=== PATIENT | female | born 1950 | race Caucasian/White ===

== ENCOUNTER 2020-06-16 12:46 | Emergency (ER) | payer MEDICARE, BC ==
--- NOTE | 2020-06-16 13:02 | EDM.PDOC ---
ED HPI GENERAL MEDICAL PROBLEM - General Chief Complaint: Lower Extremity Injury/Pain Stated Complaint: FALL (L) KNEE PAIN Time Seen by Provider: 06/16/20 12:53 Source of Information: Reports: Patient, RN Notes Reviewed - History of Present Illness INITIAL COMMENTS - FREE TEXT/NARRATIVE: 70 yr old female comes in with L knee pain. Tumbled down about 4 steps in the dark early this am with resultant pain and injury L knee. Pain is mainly medial L knee, worse with motion, difficulty to walk. No other major pain or injury. Hx of L total hip times 3. Treatments WIRELESS WATCHER: Reports: Other (see below) Other Treatments WIRELESS WATCHER: aleve this am Left Knee Pain Score (Numeric/FACES): 4 - Related Data Allergies Allergy/AdvReac Type Severity Reaction Status Date / Time cipro Allergy Severe Other Uncoded 06/16/20 13:00 Home Meds: Home Meds Naproxen Sodium [Aleve] 220 mg PO DAILY 06/16/20 [History] Triamterene/Hydrochlorothiazid [Triamterene-HCTZ 37.5-25 MG] 1 tab PO DAILY 06/16/20 [History] cycloSPORINE [Restasis Multidose] 1 drop TOP BID 06/16/20 [History] Review of Systems - Review of Systems Review Of Systems: See Below Mouth/Throat: Reports: No Symptoms Respiratory: Reports: No Symptoms Cardiovascular: Reports: Chest Pain GI/Abdominal: Reports: Abdominal Pain Musculoskeletal: Reports: Joint Pain (L knee) Skin: Reports: Other (mild abrasion R knee) Neurological: Denies: Dizziness, Numbness, Tingling, Weakness ED EXAM, GENERAL - Physical Exam Exam: See Below General Appearance: Alert, No Apparent Distress Eye Exam: Bilateral Eye: PERRL Head: Atraumatic. No: Facial Swelling Neck: Supple Respiratory/Chest: No Respiratory Distress GI/Abdominal: Non-Tender Extremities: No: Joint Swelling Neurological: Alert, Oriented, No Motor/Sensory Deficits Skin Exam: Warm, Dry, Normal Color Course - Vital Signs Last Recorded V/S: Last Vital Signs Temp 97.7 F 06/16/20 12:55 Pulse 66 06/16/20 12:55 Resp 20 06/16/20 12:55 BP 166/81 H 06/16/20 12:55 Pulse Ox 100 06/16/20 12:55 - Re-Assessments/Exams Free Text/Narrative Re-Assessment/Exam: 06/16/20 13:34 X rays no visible fx Departure - Departure Time of Disposition: 13:35 Disposition: Home, Self-Care 01 Preliminary Cause of *Q: Sepsis & Multi System Organ Failure Clinical Impression: Fall Qualifiers: Encounter type: initial encounter Qualified Code(s): W19.XXXA - Unspecified fall, initial encounter Right knee sprain Qualifiers: Encounter type: initial encounter Involved ligament of knee: medial collateral ligament Qualified Code(s): S83.411A - Sprain of medial collateral ligament of right knee, initial encounter - Discharge Information Referrals: Padmaja Cerrato PA-C [Primary Care Provider] - Forms: ED Department Discharge Additional Instructions: Continue to use arlette wrap, continue with cane, rest, ice packs, elevation, aleve as needed. See Dr Josue if not much better within 5 to 7 days as expected. Sepsis Event Note (ED) - Evaluation Sepsis Screening Result: No Definite Risk
--- NOTE | 2020-06-16 13:47 | CR ---
Left knee: 4 views left knee were obtained. Comparison: No prior knee exam. Mild medial joint space narrowing is seen. Lateral joint space is preserved. Minimal joint effusion is seen. Osteopenia is present. Impression: 1. Mild medial joint space narrowing. 2. Possible small joint effusion. Diagnostic code #2 This report was dictated in MDT
== END 2020-06-16 14:00 | disposition home or self-care (01) ==
LOC: JD.ED 12:46
DX: S83.411A Sprain of medial collateral ligament of right knee, initial encounter (principal); Z88.1 Allergy status to other antibiotic agents; Z79.899 Other long term (current) drug therapy; W10.9XXA Fall (on) (from) unspecified stairs and steps, initial encounter
CPT/HCPCS: 73564-26-LT; 73564-LT; 99283

== ENCOUNTER 2020-12-04 08:59 | Day surgery (SDC) | payer MEDICARE, BC ==
--- NOTE | 2020-11-29 11:04 | PCM.PREANE ---
Preanesthetic Assessment - Procedure Proposed Procedure: Right Total Hip Arthroplasty - Anesthesia/Transfusion/Family Hx Anesthesia History: Prior Anesthesia Without Reaction Family History of Anesthesia Reaction: No Transfusion History: No Prior Transfusion(s) Intubation History: Unknown - Review of Systems Pulmonary: No Symptoms (Quit smoking 1982) Cardiovascular: No Symptoms (Elevated cholesterol), Palpitations Gastrointestinal: No Symptoms (GERD) Neurological: No Symptoms (History of vertigo) Other: Reports: Sinus Problem (allergic rhinitis), Depression - Physical Assessment NPO Status Date: 12/03/20 Vital Signs: HR: Sat: Temp: Resp: B/P: Height: 1.57 m ASA Class: 2 Mental Status: Alert & Oriented x3 - Lab Values: Laboratory Last Values MRSA (PCR) Negative 11/17/20 15:04 All labs reviewed and noted and within acceptable ranges to proceed with scheduled procedure. - Imaging/EKG Impressions: EKG: SR rate=73 CXR: negative - Allergies Allergies/Adverse Reactions: Allergies Allergy/AdvReac Type Severity Reaction Status Date / Time cipro Allergy Severe Other Uncoded 06/16/20 13:00 pet dander Allergy Itching Uncoded 08/24/20 17:43 - Anesthesia Plan Pre-Op Medication Ordered: Other (Preoperative oral medications: (lyrica, tylenol, oxycodone)@) - Acknowledgements Anesthesia Type Planned: Spinal Pt an Appropriate Candidate for the Planned Anesthesia: Yes Alternatives and Risks of Anesthesia Discussed w Pt/Guardian: Yes Pt/Guardian Understands and Agrees with Anesthesia Plan: Yes PreAnesthesia Questionnaire Cardiovascular History: Reports: Hypertension Neurological History: Reports: Vertigo - Past Surgical History GI Surgical History: Reports: Cholecystectomy Female Surgical History: Reports: Tubal Ligation Musculoskeletal Surgical History: Reports: Hip Replacement - HOME MEDS Home Medications: Home Meds Triamterene/Hydrochlorothiazid [Triamterene-HCTZ 37.5-25 MG] 1 tab PO DAILY 06/16/20 [History] cycloSPORINE [Restasis Multidose] 1 drop TOP BID 06/16/20 [History] Ascorbic Acid [Vitamin C] 1 tab PO DAILY 08/24/20 [History] Calc/D3/Mag/Zn/Sukhdev/Tamir/[place] [Calcium 600 MG Plus Vit D] 1 tab PO DAILY 08/24/20 [History] Cholecalciferol (Vitamin D3) [Vitamin D3] 1 tab PO DAILY 08/24/20 [History] Cyanocobalamin (Vitamin B-12) [Vitamin B-12] 1 tab PO DAILY 08/24/20 [History] Garlic [Garlic Oil] 1 cap PO DAILY 08/24/20 [History] [place]-3/DHA/Epa/Fish Oil [[place] 3 500 Softgel] 1 cap PO DAILY 08/24/20 [History] Vitamin E 1 cap PO DAILY 08/24/20 [History] - CURRENT (IN HOUSE) MEDS Current Meds: Current Medications Morphine Sulfate 8 mg/Epinephrine HCl 0.3 mg/Cefuroxime Sodium 750 mg/Ketorolac Tromethamine 30 mg/Sodium Chloride 7.9 ml 0 mg .XX ASDIRECTED PRN PRN Reason: Pain Stop: 12/04/20 15:00 Lactated Ringer's (Ringers, Lactated) 1,000 mls @ 125 mls/hr IV ASDIRECTED ALPHONSE Stop: 12/04/20 23:00 Lidocaine/Sodium Bicarbonate (Buffered Lidocaine 1% In Ns 8.4%) 0.25 ml IDERM ONETIME PRN PRN Reason: Prior to IV Start Stop: 12/04/20 18:00 Sodium Chloride (Saline Flush) 10 ml FLUSH ASDIRECTED PRN PRN Reason: Keep Vein Open Stop: 12/04/20 18:00
[~2020-12-04 08:59] MED LIST: Acetaminophen 325 MG Tab PO SCH; Lactated Ringers 1,000 ML IV SCH; Lidocaine 1%/Sod Bicarbonate in NS 8.4% 1 ML Syringe IDERM PRN; Morphine 8 MG, EPINEPHrine 0.3 MG, Cefuroxime 750 MG, Ketorolac 30 MG, Sodium Chloride ... PRN; Pregabalin 25 MG Cap PO SCH; Scopolamine 1.5 MG Transdermal Patch TRDERM PRN; Sodium Chloride 0.9% 10 ML Syringe FLUSH PRN; oxyCODONE ER 10 MG TAB.ER PO SCH
--- NOTE | 2020-12-04 09:23 | PCM.PREANE ---
Preanesthetic Assessment - Anesthesia/Transfusion/Family Hx Anesthesia History: No Prior Anesthesia Type of Anesthesia Reaction: Other (see below) (RADHA) Family History of Anesthesia Reaction: No Transfusion History: Prior Transfusion Without Reaction Intubation History: Unknown - Review of Systems General: No Symptoms Pulmonary: No Symptoms Cardiovascular: No Symptoms Gastrointestinal: No Symptoms, Nausea Other: Reports: None - Physical Assessment NPO Status Date: 12/03/20 NPO Status Time: 22:00 Vital Signs: Last Vital Signs Temp 36.9 C 12/04/20 08:55 Pulse 86 12/04/20 08:55 Resp 16 12/04/20 08:55 BP 125/67 12/04/20 08:55 Pulse Ox 98 12/04/20 08:55 Height: 1.57 m Weight: 55.338 kg ASA Class: 2 Mental Status: Alert & Oriented x3 Airway Class: Mallampati = 1 Dentition: Reports: Normal Dentition Thyro-Mental Finger Breadths: 3 Mouth Opening Finger Breadths: 3 ROM/Head Extension: Full Lungs: Clear to Auscultation, Normal Respiratory Effort - Lab Values: Laboratory Last Values MRSA (PCR) Negative 11/17/20 15:04 - Allergies Allergies/Adverse Reactions: Allergies Allergy/AdvReac Type Severity Reaction Status Date / Time cat dander Allergy Itching Verified 11/29/20 11:09 ciprofloxacin Allergy Lethargy Verified 12/01/20 11:36 dog dander Allergy Itching Verified 11/29/20 11:09 Hskoubm-Cyl-Tqr Reductase Allergy Lethargy Verified 12/01/20 11:36 Inhibitor - Acknowledgements Anesthesia Type Planned: Spinal Pt an Appropriate Candidate for the Planned Anesthesia: Yes Alternatives and Risks of Anesthesia Discussed w Pt/Guardian: Yes Pt/Guardian Understands and Agrees with Anesthesia Plan: Yes PreAnesthesia Questionnaire HEENT History: Reports: Allergic Rhinitis Cardiovascular History: Reports: High Cholesterol, Hypertension Respiratory History: Reports: None Gastrointestinal History: Reports: GERD Genitourinary History: Reports: None Other Genitourinary History: 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 Musculoskeletal History: Reports: Arthritis, Osteoarthritis, Osteoporosis, RA Neurological History: Reports: Vertigo Psychiatric History: Reports: Depression Endocrine/Metabolic History: Reports: None Hematologic History: Reports: Other (See Below) Other Hematologic History: Hypokalemia Dermatologic History: Reports: Other (See Below) Other Dermatologic History: Skin Neoplasm, Lichen Sclerosis of Female Genitalia - Past Surgical History Respiratory Surgical History: Reports: None GI Surgical History: Reports: Cholecystectomy, Colonoscopy Female Surgical History: Reports: Tubal Ligation, Other (See Below) Other Female Surgeries/Procedures: left breast lumpectomy Musculoskeletal Surgical History: Reports: Hip Replacement Other Musculoskeletal Surgeries/Procedures:: Patient states she had to have her left hip replaced with 2 revisions, Spondyllisthesis, Hand Deformity - SUBSTANCE USE Tobacco Use Status *Q: Former Tobacco User Recreational Drug Use History: No - HOME MEDS Home Medications: Home Meds Triamterene/Hydrochlorothiazid [Triamterene-HCTZ 37.5-25 MG] 1 tab PO DAILY 06/16/20 [History] cycloSPORINE [Restasis Multidose] 1 drop TOP BID 06/16/20 [History] Ascorbic Acid [Vitamin C] 1 tab PO DAILY 08/24/20 [History] Calc/D3/Mag/Zn/Sukhdev/Tamir/[place] [Calcium 600 MG Plus Vit D] 1 tab PO DAILY 08/24/20 [History] Cholecalciferol (Vitamin D3) [Vitamin D3] 1 tab PO DAILY 08/24/20 [History] Cyanocobalamin (Vitamin B-12) [Vitamin B-12] 1 tab PO DAILY 08/24/20 [History] Potassium Chloride [Klor-Con 10] 2 tab PO DAILY 12/01/20 [History] Aspirin [Aspirin EC] 325 mg PO BID #70 tab 12/04/20 [Rx] Cyclobenzaprine [Flexeril] 10 mg PO BID PRN #20 tab 12/04/20 [Rx] oxyCODONE 5 - 10 mg PO Q4H PRN #40 tab 12/04/20 [Rx] - CURRENT (IN HOUSE) MEDS Current Meds: Current Medications Acetaminophen (Tylenol) 975 mg PO ONETIME ALPHONSE Stop: 12/04/20 13:00 Last Admin: 12/04/20 09:07 Dose: 975 mg Documented by: Morphine Sulfate 8 mg/Epinephrine HCl 0.3 mg/Cefuroxime Sodium 750 mg/Ketorolac Tromethamine 30 mg/Sodium Chloride 7.9 ml 0 mg .XX ASDIRECTED PRN PRN Reason: Pain Stop: 12/04/20 15:00 Lactated Ringer's (Ringers, Lactated) 1,000 mls @ 125 mls/hr IV ASDIRECTED ALPHONSE Stop: 12/04/20 23:00 Lidocaine/Sodium Bicarbonate (Buffered Lidocaine 1% In Ns 8.4%) 0.25 ml IDERM ONETIME PRN PRN Reason: Prior to IV Start Stop: 12/04/20 18:00 Oxycodone HCl (Oxycontin) 10 mg PO ONETIME ALPHONSE Stop: 12/04/20 13:00 Last Admin: 12/04/20 09:07 Dose: 10 mg Documented by: Pregabalin (Lyrica) 50 mg PO ONETIME ALPHONSE Stop: 12/04/20 13:00 Last Admin: 12/04/20 09:07 Dose: 50 mg Documented by: Scopolamine (Transderm-Scop) 1.5 mg TRDERM ONETIME PRN PRN Reason: history of vertigo Stop: 12/04/20 16:00 Sodium Chloride (Saline Flush) 10 ml FLUSH ASDIRECTED PRN PRN Reason: Keep Vein Open Stop: 12/04/20 18:00
[2020-12-04] MEDS ORDERED: Lidocaine 1% 4 ML ONE (09:33)
[2020-12-04] MEDS ORDERED: Propofol 200 MG/20 ML SDV ONE ×4 (09:33→13:49)
[2020-12-04] MEDS ORDERED: Midazolam 1 MG/ML 2 ML SDV ONE (09:35)
[2020-12-04] MEDS ORDERED: ceFAZolin 1 GM Vial ONE (09:35)
[2020-12-04] MEDS ORDERED: fentaNYL 100 MCG/2 ML SDV ONE (09:35)
[2020-12-04] MEDS ORDERED: Bupivacaine 0.25% 10 ML SDV ONE ×2 (09:56→10:01)
[2020-12-04] MEDS ORDERED: Vancomycin 1 GM SDV ONE (09:56)
[2020-12-04] MEDS ORDERED: Lactated Ringers 1,000 ML ONE ×2 (11:47→14:21)
[2020-12-04] MEDS ORDERED: fentaNYL 100 MCG/2 ML SDV IVPUSH PRN ×2 (12:14→15:59)
--- NOTE | 2020-12-04 14:39 | PCM.POSTAN ---
POST ANESTHESIA ASSESSMENT - MENTAL STATUS Mental Status: Alert, Oriented - VITAL SIGNS Vital Signs: Last Vital Signs Temp 36.9 C 12/04/20 08:55 Pulse 86 12/04/20 08:55 Resp 16 12/04/20 08:55 BP 125/67 12/04/20 08:55 Pulse Ox 98 12/04/20 08:55 - RESPIRATORY Respiratory Status: Respiratory Rate WNL, Airway Patent, O2 Saturation Stable - CARDIOVASCULAR CV Status: Pulse Rate WNL, Blood Pressure Stable - GASTROINTESTINAL GI Status: No Symptoms - PAIN Pain Score: 0 - POST OP HYDRATION Hydration Status: Adequate & Stable
[2020-12-04] MEDS ORDERED: Ondansetron 4 MG/2 ML SDV IVPUSH PRN (15:59)
[2020-12-04] MEDS ORDERED: HYDROmorphone 0.5 MG/0.5 ML Syringe IVPUSH PRN (15:59)
[2020-12-04] MEDS ORDERED: Promethazine 12.5 MG in Sodium Chloride 0.9% 50 ML IV PRN (15:59)
[2020-12-04] MEDS ORDERED: Cyclobenzaprine 10 MG Tab PO ONE ×2 (16:00→20:30)
--- NOTE | 2020-12-04 16:29 | CR ---
Pelvis and right hip: AP view of the pelvis was obtained as well as crosstable lateral view of the right hip. Bilateral hip prostheses are noted. Components are aligned. Right hip prosthesis has been placed recently. Soft tissue air is noted overlying the right hip. Bony structures are somewhat osteopenic. Nothing acute is seen. Impression: 1. Recently placed right hip prosthesis. 2. Left hip prosthesis and osteopenia. Diagnostic code #2
[2020-12-04] MEDS: ceFAZolin 2 GM in Premix Bag 1 BAG IV SCH (21:02)
[2020-12-04] MEDS: oxyCODONE 5 MG Tab PO PRN (21:03)
[2020-12-05] MEDS: oxyCODONE 5 MG Tab PO PRN ×3 (02:13→11:17)
[2020-12-05] MEDS: ceFAZolin 2 GM in Premix Bag 1 BAG IV SCH ×2 (04:54→11:18)
--- NOTE | 2020-12-05 07:33 | PCM48HPAN ---
Post Anesthesia Note - EVALUATION WITHIN 48HRS OF ANESTHETIC Vital Signs in Normal Range: Yes Patient Participated in Evaluation: Yes Respiratory Function Stable: Yes Airway Patent: Yes Cardiovascular Function Stable: Yes Hydration Status Stable: Yes Pain Control Satisfactory: Yes Nausea and Vomiting Control Satisfactory: Yes Mental Status Recovered: Yes Vital Signs: Last Vital Signs Temp 37.3 C 12/05/20 05:02 Pulse 92 12/05/20 05:02 Resp 16 12/05/20 05:02 BP 99/52 L 12/05/20 05:02 Pulse Ox 95 12/05/20 05:02 - COMMENTS/OBSERVATIONS Free Text/Narrative:: no anesthesia complications noted
[2020-12-05] MEDS ORDERED: Sodium Chloride 0.9% 1,000 ML IV ONE (09:07)
--- NOTE | 2020-12-13 18:41 | PCM.OPNOTE ---
- General Post-Op/Procedure Note Date of Surgery/Procedure: 12/04/20 Operative Procedure(s): right total hip arthroplasty Pre Op Diagnosis: right hip osteoarthrosis Post-Op Diagnosis: Same Anesthesia Technique: Local, MAC, Spinal Primary Surgeon: Wilber Josue Anesthesia Provider: Renetta Ken Apprentice Photographer: Teresa Valentine Apprentice Photographer: Elza Valladares EBHilario in mLs: 75 Complications: None Condition: Good Free Text/Narrative:: jessica [place] 35.5/125/V40 28-2.7 MDM 52 cup
--- NOTE | 2020-12-17 10:59 | OR ---
DATE OF OPERATION: 12/04/2020 SURGEON: Wilber Josue MD OPERATION PERFORMED: Right total hip arthroplasty. PREOPERATIVE DIAGNOSIS: Right hip osteoarthrosis. POSTOPERATIVE DIAGNOSIS: Right hip osteoarthrosis. ANESTHESIA: Technique: Local MAC with spinal. ANESTHESIA PROVIDER: Renetta Ken CRNA. ASSISTANTS: Teresa Valentine PA-C, and Elza Valladares LPN. ESTIMATED BLOOD LOSS: 75 mL. COMPLICATIONS: None. CONDITION: Stable. IMPLANTS: 1. Cathryn size 35.5/125 V40 [place] stem. 2. [place] size 28, -2.7 MDM components. 3. Cathryn size 52 mm solid Tritanium II acetabular cup. DESCRIPTION OF PROCEDURE: The patient was identified in the preoperative holding area and proper site was marked and identified by surgeon. The patient was taken back to the operating theater where after adequate anesthesia, the patient was placed in a left lateral decubitus position. Axillary roll was placed. All bony prominences were well padded. The patient's gluteal fold was parallel to the floor. Pegs were placed and well padded. Right hip was then sterilely prepped and draped in the usual sterile fashion. OR time-out was performed. The patient received 2 g IV Ancef. At this time, the array was done on the pelvis making sure to stay back from ASIS to not hurt the nerve. An incision was made. Two guide pins were then placed and the array was placed and then the third pin was placed and had secure fixation to the iliac crest in the region for the array for this patient. At this time, standard posterior incision was done after checkpoints were completed. This was taken down to the IT band and gluteal fascia was then incised along the incisional length. Charnley retractor was then placed. Short external rotators were identified. Takedown of the short external rotators was done from the level of the piriformis to the lesser trochanter. The checkpoint was then placed on the greater trochanter before the hip was dislocated and making sure to properly align leg lengths with a point near the knee as well. At this time, the hip was then dislocated and points were obtained for the neck cut and the neck cut was completed. Attention was turned to the acetabulum. Anterior and posterior acetabular retractors were placed. The patient was noted to have a very small acetabulum with difficult view of the acetabulum secondary to a curved trochanter as well as significant tightening of the capsule which made it significantly more difficult than a standard hip. The labrum was then removed as well as the pulvinar. Checkpoints were then completed both intra- articularly in the acetabulum as well as around the acetabular rim. Once these were found to be adequate checkpoints, the [employer] single reaming 52 mm reamer was placed and was found to have adequate reaming. At this time, the 52 mm cup was then impacted into place. I did use a secondary impactor, it was found to be in proper position for the patient. At this time, the MDM liner was impacted in place and attention was turned to the femur. Secondary to the patient having significant difficulties with press-fit, it was decided preoperatively that we would do a cemented femur. The patient was noted to have significant osteoporotic and thin bone compared to a standard total hip arthroplasty complicating it for possible fracture. At this time, box chisel was used out laterally. Starter awl was placed down the canal. Starting with the broaches, I was able to broach up to a size 35.5 [place] stem. The patient at this time had the cement restrictor placed. Secondary to the patient's very thin miller, I was unable to trial secondary to the trial being very loose in the femur and I was afraid that it would cause possible stress-riser fracture secondary to that, so at this time, the [place] stem was opened. Cement was mixed on the back table. We did have problems with the cement gun and I did try to put cement down distally, but the cement was getting too hard. I did then use curette and Delmi to remove all cement distally. Again, another batch of cement was mixed. This time, the gun was found to be adequate. The cement was placed in the canal and the stem was then held in place until the cement was hardened in proper rotation and anteversion. Once this was set, trial implants for the head were placed and again, it was noted to be significantly difficult to reduce this secondary to the patient's very tight capsule. At this time, we trialed a 0, it was found to be just a minor amount long, so at this time, we did 28, -2.7 trial and patient had exact leg length compared to contralateral side using the [employer] robotics. Hip was then dislocated. The 28, -2.7 MDM components were constructed on the back table and impacted onto the femur and the hip was relocated. Periarticular injection was completed. #5 Ethibond suture was used for closure of short external rotators and capsule. 1 L pulse lavage irrigation with Ancef was injected through the capsule as well as IrriSept irrigation. #2 barbed suture was used for closure of the IT band and the gluteal fascia, 2-0 Vicryl was used subcutaneously, and Prineo was used for closure of the skin. The patient had a sterile soft dressing applied and was sent to PACU in stable condition. MMODAL /[id number]
== END 2020-12-05 12:10 | disposition home or self-care (01) ==
LOC: JD.SDS 08:59 → JD.MS 18:40 → JD.SDS 12-05 12:10
PROVIDERS: ATTEND Orthopaedic Surgery
DX: M16.11 Unilateral primary osteoarthritis, right hip (principal); E78.00 Pure hypercholesterolemia, unspecified; M06.9 Rheumatoid arthritis, unspecified; E87.6 Hypokalemia; D48.5 Neoplasm of uncertain behavior of skin; I10 Essential (primary) hypertension; Z79.899 Other long term (current) drug therapy; Z98.890 Other specified postprocedural states; Z87.891 Personal history of nicotine dependence; Z88.8 Allergy status to other drugs, medicaments and biological substances; Z88.1 Allergy status to other antibiotic agents
CPT/HCPCS: 27130; 36415; 73501; 86850; 86900; 86901; 87641; 94760; 97162; 97165; A9270; C1713; C1776; J0690; J2250; J2550; J2704; J3010; J3370; J3490; J7030; J7120; 01214; J2001

== ENCOUNTER 2022-08-22 07:37 | Day surgery (SDC) | payer MEDICARE, BC ==
[2022-08-22] MEDS: Polymyxin B/Trimethoprim 10 ML Bottle EYERT SCH ×3 (07:14→09:02)
[2022-08-22] MEDS: Brimonidine 0.2% Ophth Soln 5 ML Bottle EYERT SCH ×3 (07:20→09:02)
[2022-08-22] MEDS: Phenylephrine 2.5% Ophth Soln 2 ML Bot EYERT SCH ×5 (07:24→08:44)
[2022-08-22] MEDS: Tropicamide 1% Ophth Soln 15 ML Bottle EYERT SCH ×4 (07:28→08:15)
[~2022-08-22 07:37] MED LIST changes: -Acetaminophen 325 MG Tab PO SCH; +Cefuroxime 10 MG/ML SYRINGE EYERT SCH; -Lactated Ringers 1,000 ML IV SCH; +Lidocaine 1% PF 2 ML SDV INJECT SCH; -Lidocaine 1%/Sod Bicarbonate in NS 8.4% 1 ML Syringe IDERM PRN; -Morphine 8 MG, EPINEPHrine 0.3 MG, Cefuroxime 750 MG, Ketorolac 30 MG, Sodium Chloride ... PRN; +Pilocarpine 4% Ophth Soln 15 ML Bot EYERT SCH; -Pregabalin 25 MG Cap PO SCH; -Scopolamine 1.5 MG Transdermal Patch TRDERM PRN; -Sodium Chloride 0.9% 10 ML Syringe FLUSH PRN; -oxyCODONE ER 10 MG TAB.ER PO SCH
[2022-08-22] MEDS: Tetracaine HCl/PF 0.5% 4 ML Bottle EYEBOTH SCH ×4 (08:19→08:50)
== END 2022-08-22 09:14 | disposition home or self-care (01) ==
LOC: JD.SDS 07:37
PROVIDERS: ATTEND Ophthalmology
DX: H25.813 Combined forms of age-related cataract, bilateral (principal); H16.223 Keratoconjunctivitis sicca, not specified as Sjogren's, bilateral; H02.831 Dermatochalasis of right upper eyelid; H02.834 Dermatochalasis of left upper eyelid; H16.103 Unspecified superficial keratitis, bilateral; M19.90 Unspecified osteoarthritis, unspecified site; I10 Essential (primary) hypertension; M81.0 Age-related osteoporosis without current pathological fracture; Z98.890 Other specified postprocedural states; Z96.643 Presence of artificial hip joint, bilateral; Z87.891 Personal history of nicotine dependence; Z79.899 Other long term (current) drug therapy; Z91.018 Allergy to other foods; K21.9 Gastro-esophageal reflux disease without esophagitis
CPT/HCPCS: 66984; J0697; V2632